=== PATIENT | female | born 1990 | race Two or more races ===

== ENCOUNTER 2025-06-06 13:47 | Emergency (ER) | payer OTHER ==
[~2025-06-06] VITALS: Ht 154.9 cm; Wt 75.5 kg
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
[2025-06-06 19:55] VITALS: RESP 22; O2SAT 99
[2025-06-06] MEDS: LOSARTAN POTASSIUM 50 MG TAB PO ONE (20:10)
[2025-06-06] MEDS: HYDROcodone-ACET 10/325MG TAB PO ONE (20:10)
[2025-06-06] MEDS: ACETAMINOPHEN 500 MG TAB or CAP PO ONE (20:10)
[2025-06-06 20:39] VITALS: BP 160/101; PULSE 103; TEMP 100.5
== END 2025-06-06 20:41 | disposition home or self-care (01) ==
LOC: ER 13:47
DX: M79.18 Myalgia, other site (principal); M54.50 Low back pain, unspecified; Z88.2 Allergy status to sulfonamides; Z88.1 Allergy status to other antibiotic agents; V49.40XA Driver injured in collision with unspecified motor vehicles in traffic accident, initial encounter; Y93.89 Activity, other specified; Y92.410 Unspecified street and highway as the place of occurrence of the external cause; Y99.8 Other external cause status
CPT/HCPCS: 72125; 72131